=== PATIENT | female | born 2000 | race Caucasian/White ===

== ENCOUNTER 2024-04-16 08:50 | Observation (INO) ==
--- NOTE | 2024-04-16 09:08 | Emergency Department Note ---
Impression & Plan Acute appendicitis, Influenza A, SARS-CoV-2 positive ED Provider Note CHIEF COMPLAINT: Flulike symptoms HISTORY OF PRESENTING ILLNESS: The patient is a 23-year-old female with a PMH of IBS who presents to the emergency room due to fever, cough, loss of taste and smell, nasal congestion. She stated that the symptoms began on 04/03/2024 confirms that symptoms had improved but they are now worsened and include abdominal pain. She states that the abdominal pain was in the left lower quadrant and is now in the upper left quadrant. Confirms the abdominal pain started 04/11/2024. There is no history of abdominal surgeries. REVIEW OF SYSTEMS: See HPI for pertinent positives and pertinent negatives. ALLERGIES: Benzyl peroxide, seasonal allergies MEDICATIONS: Does not currently take medications. PAST MEDICAL HISTORY: IBS PHYSICAL EXAM: VITALS: Vitals are noted on the nurse's note and reviewed by myself. Vital signs stable. GENERAL: 23-year-old female, in no acute distress, nondiaphoretic, well- developed well-nourished. SKIN: Capillary reflex less than 2 seconds. HEENT: Normocephalic. PERRLA. EOMI. Nasal congestion. Mucous membranes moist. Neck is supple without nuchal rigidity. HEART: Regular rate and rhythm without murmurs gallops or rubs. LUNGS: Clear to auscultation bilaterally without wheezes, rales or rhonchi. No retractions or accessory muscle use. ABDOMEN: Positive bowel sounds x 4. Tenderness to palpation right lower quadrant. McBurney positive. Mild tenderness to palpation left upper and lower quadrant. Soft, without masses or organomegaly. Can sign negative. No guarding or rebound tenderness. MUSCULOSKELETAL: No gross musculoskeletal defects. No pedal edema. No calf tenderness. NEURO: Patient was alert and oriented. No focal neurological deficits. DIFFERENTIAL DIAGNOSIS: Viral infection, influenza, COVID-19, bacterial infection, allergic rhinitis, sinusitis, pneumonia, pneumothorax, bronchitis, GERD, cardiac cause, among others. appendicitis, diverticulitis, bowel obstruction, inflammatory bowel disease, renal colic, PUD, biliary pathology, pancreatitis, mesenteric ischemia, aortic pathology, infection, genitourinary, UTI, perforated viscus, among others. ED COURSE AND MEDICAL DECISION MAKING: HISTORY FROM INDEPENDENT HISTORIAN: The patient herself. MEDICATIONS GIVEN: Tylenol 1000 mg IV, Zofran 4 mg IV, morphine 6 mg IV, Zofran 4 mg IV INTERPRETATION OF LABS: I interpreted the labs with full lab results as below in the lab section of this note. Pertinent lab results discussed in the MDM section below. INTERPRETATION OF IMAGING: Imaging studies were interpreted by myself and read by radiology as per the imaging section of this note. CT abdomen pelvis with oral and IV contrast -air and fluid-filled appendix is borderline dilated with mild wall thickening and trace adjacent inflammatory stranding which may represent early acute appendicitis in the appropriate clinical setting. No bowel obstruction. Moderate fecal retention of rectosigmoid. Chest x-ray - no acute cardiopulmonary findings. ESCALATION OF CARE CONSIDERED: Escalation of care was considered due to the patient's abdominal pain presentation and positive findings of acute appendicitis on CT abdomen and pelvis. Patient does not have a white count but has had an middle abdominal pain as well as McBurney's positive. She has also had fevers -which may be due to influenza A/COVID positive. Consult was placed with general surgery for admission and surgical appendectomy. CONSULTATIONS: General surgery - Kristin Valdivia PA-C - A consultation was placed with general surgery physician nursing assistant provider Kristin. I discussed the patient's presenting symptoms as well as significant physical exam for appendicitis. Did confirm with her that patient is influenza A and COVID positive. She stated that she was going to check with Dr. Claros as well as the anesthesiology team to make sure that they would still be able to operate at this time and would come down to see her. MDM SUMMARY: The patient is a 23-year-old female presents to the emergency department due to upper respiratory symptoms that began on 04/03/24 which were getting better but she is still having fevers. She now confirms abdominal pain that began on 04/11/2024. The pain began in the left lower quadrant and is now in the upper left quadrant. On physical exam deep palpation to the right lower quadrant causes the patient to jump in the bed and wince. Patient confirms no history of abdominal surgeries and still having her appendix. Due to the patient's abdominal pain on physical exam and her size her and I discussed using oral contrast as well for imaging and she agreed. A full workup of the patient was started including blood work -CBC, CMP, lipase, , chest x-ray, upper respiratory panel, urinalysis, CT abdomen and pelvis with oral and IV contrast. All blood work was thoroughly reviewed with the patient. White blood cell count normal 4.79. Remainder of CBC unremarkable. CMP showing normal electrolytes, kidney function, liver function, all other levels within normal limits. Lipase normal 28. negative. Urinalysis was clean showing no obvious signs of infection. Upper respiratory panel resulted showing positive for influenza A and SARS-CoV-2. Due to the patient having upper respiratory symptoms that have been ongoing for 2 weeks now the viral treatment is now supportive. Patient is stable on exam, clear to auscultation bilaterally, afebrile, and headache is controlled with Tylenol. Chest x-ray shows no obvious sign of pneumothorax, pleural effusion, or consolidation. No acute cardiopulmonary findings. CT abdomen and pelvis with oral and IV contrast confirmed air and fluid-filled appendix is borderline dilated with mild wall thickening and trace adjacent inflammatory stranding. Due to this reading and the patient's physical presentation on exam it is apparent that she may representing early acute appendicitis. A consultation with general surgery was placed. I discussed the patient with Kristin Valdivia PA-C from general surgery which can be seen in detail above. She stated that she was going to come down and see the patient herself as well. The patient was evaluated by Kristin from general surgery and confirmed with the patient that they are going to take her down to the operating room this evening. After her examining the patient nurses notified me that she was having abdominal discomfort and pain due to physical exam. IV morphine and Zofran were given. I checked in with the patient one more time before she was admitted with the general surgery team. She had no further questions at this time and agreed to the surgical procedure. She was very pleasant and happy that it was caught before there was any further complications. Patient was hemodynamically stable and vitals were stable upon admission. DIAGNOSIS: Acute appendicitis, influenza A positive, SARS-CoV-2 positive The chart was completed utilizing [employer] Speech voice recognition software. Grammatical errors, random word insertions, pronoun errors, and incomplete sentences are an occasional consequence of this system due to software limitations, ambient noise, and hardware issues. Any formal questions or concerns about the content, text, or information contained within the body of this dictation should be directly addressed to the provider for clarification. TREATMENT PLAN/DISCHARGE INSTRUCTIONS: Treatment plans and discharge instructions will be up to the discretion of the general surgery team who completed Ailyn's appendectomy and her hospitalist care. Past Med/Surg History Problem List (Updated 04/16/24 @ 18:42 by Ilda Godfrey PA-C) SARS-CoV-2 positive (Acute) Influenza A (Acute) Acute appendicitis (Acute) Encounter for pre-operative examination Acute appendicitis Dysmenorrhea PMS (premenstrual syndrome) Encounter for annual routine gynecological examination Screen for STD (sexually transmitted disease) Constipation Weight gain IBS (irritable bowel syndrome) Medical History Influenza A COVID-19 Anxiety Nausea & vomiting Diarrhea Surgical History [place] teeth extracted Family History Father Colitis Mother Depression Grandmother No problems noted. Grandfather Lung cancer Grandmother (Paternal) Ovarian cancer Lung cancer Grandfather (Maternal) Prostate cancer Social History Smoking Status: Never smoker Do You Dip or Chew Tobacco: No; Hx Alcohol Use: Yes Alcohol Intake Frequency: 4 or More x per/Week Hx Substance Use: No Preferred Language: Georgian marital status: Single Feels Safe at Home: Yes Dental Care, Regularly: Yes Assistive Devices: None Allergies Allergies Allergy/AdvReac Type Severity Reaction Status Date / Time benzoyl peroxide Allergy Unknown Verified 04/24/23 11:36 Seasonal allergies Allergy Mild Uncoded 04/24/23 11:36 Home Meds Home Medications Medication Instructions Recorded Confirmed levocetirizine 5 mg tablet (Xyzal) 5 mg PO DAILY 09/20/22 04/16/24 ascorbic acid (vitamin C) 500 mg 500 mg PO DAILY 04/24/23 04/16/24 tablet benzonatate 100 mg capsule 100 mg PO TID PRN Cough 04/16/24 04/16/24 Results & Data (ED) Vital Signs Vital Signs - 24 hr 04/16/24 08:57 04/16/24 09:19 04/16/24 09:30 Temperature 37.3 C Temperature Source Temporal Artery Scan Pulse Rate 124 H 107 H Pulse Rate [Apical] 113 H Pulse Rate from SpO2 Sensor Pulse Rhythm [Apical] Pulse Strength [Apical] Respiratory Rate 20 18 Respiratory Effort / Characteristics Non-Labored Spontaneous Non-Labored Spontaneous Respiratory Depth Normal Normal Respiratory Pattern Regular Blood Pressure 110/80 Blood Pressure [Left Arm] Blood Pressure [Right Arm] 137/82 Blood Pressure Mean 90 Blood Pressure Mean [Left Arm] Blood Pressure Mean [Right Arm] 100 Blood Pressure Position [Left Arm] Blood Pressure Position [Right Arm] Pulse Oximetry 97 95 Oxygen Delivery Method Room Air Room Air Oxygen Flow Rate Sepsis Recent Fever Within 48 Hours No Sepsis New/Unexplained Change in Mental Status N/A Sepsis Action Taken by Nursing No Action Required 04/16/24 09:30 04/16/24 11:30 04/16/24 12:00 Temperature Temperature Source Pulse Rate 104 H 99 H Pulse Rate [Apical] Pulse Rate from SpO2 Sensor 103 H 99 H Pulse Rhythm [Apical] Pulse Strength [Apical] Respiratory Rate 20 14 Respiratory Effort / Characteristics Respiratory Depth Respiratory Pattern Blood Pressure 103/73 Blood Pressure [Left Arm] Blood Pressure [Right Arm] Blood Pressure Mean 83 Blood Pressure Mean [Left Arm] Blood Pressure Mean [Right Arm] Blood Pressure Position [Left Arm] Blood Pressure Position [Right Arm] Pulse Oximetry 95 100 99 Oxygen Delivery Method Room Air Oxygen Flow Rate Sepsis Recent Fever Within 48 Hours Sepsis New/Unexplained Change in Mental Status Sepsis Action Taken by Nursing 04/16/24 13:36 04/16/24 14:10 04/16/24 14:58 Temperature Temperature Source Pulse Rate 113 H 110 H 115 H Pulse Rate [Apical] Pulse Rate from SpO2 Sensor 111 H Pulse Rhythm [Apical] Pulse Strength [Apical] Respiratory Rate 15 16 Respiratory Effort / Characteristics Respiratory Depth Respiratory Pattern Blood Pressure 116/65 127/100 Blood Pressure [Left Arm] Blood Pressure [Right Arm] Blood Pressure Mean 82 109 Blood Pressure Mean [Left Arm] Blood Pressure Mean [Right Arm] Blood Pressure Position [Left Arm] Blood Pressure Position [Right Arm] Pulse Oximetry 98 97 Oxygen Delivery Method Room Air Oxygen Flow Rate Sepsis Recent Fever Within 48 Hours Sepsis New/Unexplained Change in Mental Status Sepsis Action Taken by Nursing 04/16/24 15:08 04/16/24 15:32 04/16/24 17:04 Temperature 37.1 C 36.8 C Temperature Source Oral Oral Pulse Rate 115 H Pulse Rate [Apical] 106 H 97 H Pulse Rate from SpO2 Sensor Pulse Rhythm [Apical] Regular Regular Pulse Strength [Apical] Normal Respiratory Rate 16 18 12 Respiratory Effort / Characteristics Non-Labored Spontaneous Non-Labored Spontaneous Respiratory Depth Normal Normal Respiratory Pattern Regular Regular Blood Pressure 127/100 Blood Pressure [Left Arm] 106/67 Blood Pressure [Right Arm] 110/84 Blood Pressure Mean Blood Pressure Mean [Left Arm] 80 Blood Pressure Mean [Right Arm] 92 Blood Pressure Position [Left Arm] Semi-fowlers Blood Pressure Position [Right Arm] Sitting Pulse Oximetry 97 100 100 Oxygen Delivery Method Room Air Room Air Oxymask Oxygen Flow Rate 9 Sepsis Recent Fever Within 48 Hours Sepsis New/Unexplained Change in Mental Status Sepsis Action Taken by Nursing 04/16/24 17:10 04/16/24 17:20 04/16/24 17:30 Temperature Temperature Source Pulse Rate Pulse Rate [Apical] 90 88 85 Pulse Rate from SpO2 Sensor Pulse Rhythm [Apical] Regular Regular Regular Pulse Strength [Apical] Respiratory Rate 14 14 13 Respiratory Effort / Characteristics Non-Labored Spontaneous Non-Labored Spontaneous Non-Labored Spontaneous Respiratory Depth Normal Normal Normal Respiratory Pattern Regular Regular Regular Blood Pressure Blood Pressure [Left Arm] 125/79 121/79 113/81 Blood Pressure [Right Arm] Blood Pressure Mean Blood Pressure Mean [Left Arm] 94 93 91 Blood Pressure Mean [Right Arm] Blood Pressure Position [Left Arm] Semi-fowlers Semi-fowlers Semi-fowlers Blood Pressure Position [Right Arm] Pulse Oximetry 100 100 96 Oxygen Delivery Method Oxymask Room Air Room Air Oxygen Flow Rate 9 Sepsis Recent Fever Within 48 Hours Sepsis New/Unexplained Change in Mental Status Sepsis Action Taken by Nursing 04/16/24 17:40 04/16/24 17:50 Temperature 37 C Temperature Source Oral Pulse Rate Pulse Rate [Apical] 79 76 Pulse Rate from SpO2 Sensor Pulse Rhythm [Apical] Regular Regular Pulse Strength [Apical] Respiratory Rate 21 18 Respiratory Effort / Characteristics Non-Labored Spontaneous Non-Labored Spontaneous Respiratory Depth Normal Normal Respiratory Pattern Regular Regular Blood Pressure Blood Pressure [Left Arm] 117/77 114/77 Blood Pressure [Right Arm] Blood Pressure Mean Blood Pressure Mean [Left Arm] 90 89 Blood Pressure Mean [Right Arm] Blood Pressure Position [Left Arm] Semi-fowlers Semi-fowlers Blood Pressure Position [Right Arm] Pulse Oximetry 95 96 Oxygen Delivery Method Room Air Room Air Oxygen Flow Rate Sepsis Recent Fever Within 48 Hours Sepsis New/Unexplained Change in Mental Status Sepsis Action Taken by Nursing Laboratory Data 04/16/24 09:32 04/16/24 09:32 Lab Results 04/16/24 Range/Units 09:32 WBC 4.79 L (4.8-10.8) K/ul RBC 4.79 (4.20-5.40) M/uL Hgb 13.9 (12.0-16.0) g/dl Hct 40.3 (37.0-47.0) % MCV 84.1 (80.0-100.0) fL MCH 29.0 (25.0-34.0) pg MCHC 34.5 (32.0-36.0) g/dL RDW Std Deviation 36.0 L (36.4-46.3) fL RDW Coeff of Kishore 11.8 (11.5-14.5) % Plt Count 225 (130-400) K/uL MPV 10.0 (9.4-12.4) fL Immature Gran % (Auto) 0.2 % Neut % (Auto) 72.1 % Lymph % (Auto) 15.9 % [place] % (Auto) 10.6 % Eos % (Auto) 1.0 % Baso % (Auto) 0.2 % Neut # (Auto) 3.45 (1.40-6.50) K/uL Lymph # (Auto) 0.76 L (1.20-3.40) K/uL [place] # (Auto) 0.51 (0.11-0.59) K/uL Eos # (Auto) 0.05 (0.00-0.50) K/uL Baso # (Auto) 0.01 (0.00-0.20) K/uL Immature Gran # (Auto) 0.01 (0.01-0.20) K/uL Sodium 137 (136-145) mmol/L Potassium 3.8 (3.5-5.1) mmol/L Chloride 103 (98-107) mmol/L Carbon Dioxide 29 (21-32) mmol/L Anion Gap 5 (3-11) BUN 6 (6-23) mg/dl Creatinine 0.69 (0.6-1.2) mg/dl Est Cr Clr Drug Dosing 118.7 ml/min eGFR 124.98 BUN/Creatinine Ratio 8.7 L (10-20) Glucose 115 H (70-99(Fasting)) mg/dl Calcium 9.0 (8.6-10.3) mg/dl Total Bilirubin 0.4 (0.2-1.0) mg/dl AST 18 (13-39) U/L ALT 17 (7-52) U/L Alkaline Phosphatase 71 (34-104) U/L Total Protein 7.8 (6.0-8.3) gm/dl Albumin 4.6 (3.4-5.0) gm/dl Globulin 3.2 (2.5-4.0) gm/dl Albumin/Globulin Ratio 1.4 (0.9-2) Lipase 28 (11-82) U/L HCG, Qual Negative (Negative) Urine Color Yellow Urine Appearance Clear (Clear) Urine pH 7.0 (4.5-7.5) Ur Specific [place] 1.005 (1.000-1.030) Urine Protein Negative (Negative) Urine Glucose (UA) Negative (Negative) Urine Ketones Negative (Negative) Urine Blood Negative (Negative) Urine Nitrite Negative (Negative) Urine Bilirubin Negative (Negative) Urine Urobilinogen Negative (Negative) Ur Leukocyte Esterase Negative (Negative) Nasal Influ A H1 2008 PCR DETECTED A (NotDetected) Adenovirus (PCR) Not Detected (NotDetected) B. pertussis DNA (PCR) Not Detected (NotDetected) B.parapertussis DNA PCR Not Detected (NotDetected) C. pneumoniae DNA (PCR) Not Detected (NotDetected) Coronavirus OC43 (PCR) Not Detected (NotDetected) Coronavirus HKU1 (PCR) Not Detected (NotDetected) Coronavirus 229E (PCR) Not Detected (NotDetected) SARS-CoV-2 (PCR) DETECTED A (NotDetected) Coronavirus NL63 (PCR) Not Detected (NotDetected) Human Metapneumovir PCR Not Detected (NotDetected) Influenza Type B (PCR) Not Detected (NotDetected) M. pneumoniae (PCR) Not Detected (NotDetected) Parainfluenza 1 (PCR) Not Detected (NotDetected) Parainfluenza 2 (PCR) Not Detected (NotDetected) Parainfluenza 3 (PCR) Not Detected (NotDetected) Parainfluenza 4 (PCR) Not Detected (NotDetected) RSV (PCR) Not Detected (NotDetected) Entero/Rhino (PCR) Not Detected (NotDetected) Administered Medications Ondansetron HCl (Ondansetron Inj 2 Mg/Ml 2 Ml Vial) 4 mg IV ONCE PRN PRN Reason: PACU Use Only-Nausea/Vomiting Stop: 04/16/24 23:33 Last Admin: 04/16/24 17:15 Dose: 4 mg Documented By: MADHAVI Discontinued Medications Bupivacaine HCl/Epinephrine Bitart (Bupivacaine/Epinephrine 0.5% Mpf 1:200,000 30 Ml Vial) Confirm Administered Dose 30 ml .ROUTE .STK-MED ONE Stop: 04/16/24 15:12 Last Admin: 04/16/24 16:44 Dose: 30 ml Documented By: KATIE Fentanyl Citrate (Fentanyl Citrate Pf 100 Mcg/2 Ml Vial) 50 mcg IV Q5M PRN PRN Reason: PACU Use Only-Pain Stop: 04/16/24 23:33 Last Admin: 04/16/24 17:35 Dose: 50 mcg Documented By: Admin: 04/16/24 17:25 Dose: 50 mcg Documented By: Admin: 04/16/24 17:15 Dose: 50 mcg Documented By: Admin: 04/16/24 17:10 Dose: 50 mcg Documented By: MADHAVI Acetaminophen (Ofirmev) 1,000 mg in 100 mls @ 400 mls/hr IV NOW STA Stop: 04/16/24 09:32 Last Infusion: 04/16/24 09:55 Dose: Infused Documented By: Admin: 04/16/24 09:40 Dose: 400 mls/hr Documented By: EMMA Cefazolin Sodium (Ancef 2000mg) 2,000 mg in 15 mls @ 3.75 mls/min IV PREOP ONE; Protocol Stop: 04/16/24 14:40 Last Admin: 04/16/24 14:50 Dose: 3.75 mls/min Documented By: JUANCARLOS Cefazolin Sodium (Ancef 2000mg) 2,000 mg in 15 mls @ 3.75 mls/min IV ONCE ONE Stop: 04/16/24 16:40 Last Admin: 04/16/24 16:12 Dose: 3.75 mls/min Documented By: [id number] Ioversol (Optiray 320 100ml) 92 ml IV ONCE ONE Stop: 04/16/24 11:25 Last Admin: 04/16/24 11:24 Dose: 92 ml Documented By: SOLIS Morphine Sulfate (Morphine Sulfate 10 Mg/Ml Carp/Vial) 6 mg IV NOW STA Stop: 04/16/24 14:30 Last Admin: 04/16/24 15:05 Dose: Not Given Documented By: JUANCARLOS Ondansetron HCl (Ondansetron Inj 2 Mg/Ml 2 Ml Vial) 4 mg IV NOW STA Stop: 04/16/24 09:23 Last Admin: 04/16/24 14:40 Dose: Not Given Documented By: JUANCARLOS Ondansetron HCl (Ondansetron Inj 2 Mg/Ml 2 Ml Vial) 4 mg IV NOW STA Stop: 04/16/24 14:30 Last Admin: 04/16/24 15:03 Dose: 4 mg Documented By: JUANCARLOS Imaging Data Radiologist's Impression: Abdomen/Pelvis CT 04/16/24 09:[address] WITH IV AND ORAL CONTRAST CT DOSE: 584.89 mGy.cm HISTORY: Acute generalized abdominal pain abdominal pain TECHNIQUE: Multiaxial CT images of the abdomen and pelvis were performed following the IV administration of 92 cc of Optiray and oral contrast. A dose lowering technique was utilized adhering to the principles of ALARA. COMPARISON STUDY: None. FINDINGS: The lung bases are clear. The liver, spleen, gallbladder, pancreas, kidneys, and adrenal glands are within normal limits. Mild bilateral pelvocaliectasis is likely physiologic. The appendix is air and fluid filled measuring up to 6 mm transversely with mild wall thickening. Mild adjacent periappendiceal stranding. Contrast is noted within the proximal appendiceal lumen. There is moderate fecal retention. There is mild wall thickening with partial distention of the mid transverse colon. No bowel wall thickening or obstruction. Unremarkable uterus. Numerous bilateral ovarian follicles. Trace likely physiologic free pelvic fluid. No suspicious lytic or blastic osseous lesions. IMPRESSION: 1. The air and fluid-filled appendix is borderline dilated with mild wall thickening and trace adjacent inflammatory stranding which may represent early acute appendicitis in the appropriate clinical setting. Correlate with patient history and physical exam findings. 2. No bowel obstruction or pneumoperitoneum. 3. Moderate fecal retention of the rectosigmoid. ACT 112: Negative or not required by law. The above report was generated using voice recognition software. It may contain grammatical, syntax or spelling errors. Electronically signed by: Corwin Sarmiento M.D. 04/16/2024 12:16 PM Chest X-Ray 04/16/24 09:31 XR chest 2V PA/lateral CLINICAL HISTORY: URI symptoms COMPARISON STUDY: No previous studies for comparison. FINDINGS: Lung volumes are mildly diminished. Lungs are clear. There is no pneumothorax or pleural effusion. Cardiac size is normal. Mediastinal contours are normal. There is no evidence for pulmonary edema. IMPRESSION: No acute cardiopulmonary findings. ACT 112: Negative or not required by law. Electronically signed by: Asif Camacho M.D. 04/16/2024 11:22 AM Discharge Plan Visit Data Chief Complaint: Flu Like Symptoms Stated Complaint: HEADACHE, NAUSEA, FEVER, ACHES, SORE THROAT, ABD P ED Provider: Hipolito Carroll ED Midlevel Provider: Ilda Godfrey Discharge Problem: Acute appendicitis, Influenza A, SARS-CoV-2 positive Patient Disposition: Admitted As Inpatient Condition: Good Discharge Instructions Interventions: ED Discharge Assessment Last Done: 04/16/24 15:08 Discharge Problem: Acute appendicitis Qualifiers: Acute appendicitis type: with generalized peritonitis Appendicitis gangrene presence: with gangrene Appendicitis perforation presence: without perforation A ppendicitis abscess presence: without abscess Qualified Code(s): K35.200 - Acute appendicitis with generalized peritonitis, without perforation or abscess; K35.891 - Other acute appendicitis without perforation, with gangrene
[2024-04-16] MEDS: ACETAMINOPHEN 1,000 MG/100 ML VIAL IV STA (09:40)
[2024-04-16 09:55] LABS: Basophils # (auto) 0.01 K/uL (0.00-0.20); Basophils % (auto) 0.2 %; Eosinophils # (auto) 0.05 K/uL (0.00-0.50); Hematocrit (blood only) 40.3 % (37.0-47.0); Hemoglobin 13.9 g/dl (12.0-16.0); Immature Granulocytes # (auto) 0.01 K/uL (0.01-0.20); Immature Granulocytes % (auto) 0.2 %; Lymphocytes # (auto) 0.76 K/uL (1.20-3.40); Lymphocytes % (auto) 15.9 %; Mean Corpuscular Hgb Conc 34.5 g/dL (32.0-36.0); Mean Corpuscular Volume 84.1 fL (80.0-100.0); Monocytes # (auto) 0.51 K/uL (0.11-0.59); Monocytes % (auto) 10.6 %; Neutrophils # (auto) 3.45 K/uL (1.40-6.50); Neutrophils % (auto) 72.1 %; Platelet Count 225 K/uL (130-400); RDW Coefficient of Variation 11.8 % (11.5-14.5); Red Blood Count 4.79 M/uL (4.20-5.40); White Blood Count 4.79 K/ul (4.8-10.8)
[2024-04-16 10:06] LABS: Appearance Urine Clear (Clear); Bilirubin Urine Negative (Negative); Blood Urine Negative (Negative); Color Urine Yellow; Glucose Urine UA Negative (Negative); Ketones Urine Negative (Negative); Leukocyte Esterase Urine Negative (Negative); Nitrite Urine Negative (Negative); Protein Urine Negative (Negative); Specific Gravity Urine 1.005 (1.000-1.030); Urobilinogen Urine Negative (Negative)
[2024-04-16 10:08] LABS: Pregnancy Test, Serum Negative (Negative)
[2024-04-16 10:16] LABS: Albumin Globulin Ratio 1.4 (0.9-2); Albumin Level 4.6 gm/dl (3.4-5.0); BUN Creatinine Ratio 8.7 (10-20); Bilirubin,Total 0.4 mg/dl (0.2-1.0); Creatinine Clr Calc Pharmacy 118.7 ml/min; Globulin 3.2 gm/dl (2.5-4.0); Potassium 3.8 mmol/L (3.5-5.1); Total Protein 7.8 gm/dl (6.0-8.3)
[2024-04-16 11:08] LABS: Adenovirus PCR Not Detected (NotDetected); Bordetella parapertussis PCR Not Detected (NotDetected); Bordetella pertussis PCR Not Detected (NotDetected); Chlamydia pneumoniae PCR Not Detected (NotDetected); Coronavirus 229E PCR Not Detected (NotDetected); Coronavirus CoV-2 (COVID19)PCR DETECTED (NotDetected); Coronavirus HKU1 PCR Not Detected (NotDetected); Coronavirus NL63 PCR Not Detected (NotDetected); Coronavirus OC43PCR Not Detected (NotDetected); Human Metapneumovirus PCR Not Detected (NotDetected); Influenza A (H1 2009) PCR DETECTED (NotDetected); Influenza B PCR Not Detected (NotDetected); Mycoplasma pneumoniae PCR Not Detected (NotDetected); Parainfluenza Virus 1 PCR Not Detected (NotDetected); Parainfluenza Virus 2 PCR Not Detected (NotDetected); Parainfluenza Virus 3 PCR Not Detected (NotDetected); Parainfluenza Virus 4 PCR Not Detected (NotDetected); Respiratory Syncytial VirusPCR Not Detected (NotDetected); Rhinovirus/Enterovirus PCR Not Detected (NotDetected)
--- NOTE | 2024-04-16 11:23 | XRay Report ---
XR chest 2V PA/lateral CLINICAL HISTORY: URI symptoms COMPARISON STUDY: No previous studies for comparison. FINDINGS: Lung volumes are mildly diminished. Lungs are clear. There is no pneumothorax or pleural ef fusion. Cardiac size is normal. Mediastinal contours are normal. There is no evidence for pulmonary e arcelia. IMPRESSION: No acute cardiopulmonary findings. ACT 112: Negative or not required by law. Electronically signed by: Asif Camacho M.D. 04/16/2024 11:22 AM
[2024-04-16] MEDS: OPTIRAY 320 100ml IV ONE (11:24)
--- NOTE | 2024-04-16 12:17 | CT Scan Report ---
ABDOMEN AND PELVIS CT WITH IV AND ORAL CONTRAST CT DOSE: 584.89 mGy.cm HISTORY: Acute generalized abdominal pain abdominal pain TECHNIQUE: Multiaxial CT images of the abdomen and pelvis were performed following the IV administrat ion of 92 cc of Optiray and oral contrast. A dose lowering technique was utilized adhering to the pr inciples of ODELL. COMPARISON STUDY: None. FINDINGS: The lung bases are clear. The liver, spleen, gallbladder, pancreas, kidneys, and adrenal gl ands are within normal limits. Mild bilateral pelvocaliectasis is likely physiologic. The appendix is air and fluid filled measuring up to 6 mm transversely with mild wall thickening. Mild adjacent west appendiceal stranding. Contrast is noted within the proximal appendiceal lumen. There is moderate fec al retention. There is mild wall thickening with partial distention of the mid transverse colon. No b owel wall thickening or obstruction. Unremarkable uterus. Numerous bilateral ovarian follicles. Trace likely physiologic free pelvic fluid. No suspicious lytic or blastic osseous lesions. IMPRESSION: 1. The air and fluid-filled appendix is borderline dilated with mild wall thickening and trace adjace nt inflammatory stranding which may represent early acute appendicitis in the appropriate clinical se tting. Correlate with patient history and physical exam findings. 2. No bowel obstruction or pneumoperitoneum. 3. Moderate fecal retention of the rectosigmoid. ACT 112: Negative or not required by law. The above report was generated using voice recognition software. It may contain grammatical, syntax o r spelling errors. Electronically signed by: Corwin Sarmiento M.D. 04/16/2024 12:16 PM
--- NOTE | 2024-04-16 14:37 | History & Physical Report ---
Date of Service April 16, 2024 Assessment & Plan (1) Acute appendicitis: (2) COVID-19: (3) Influenza A: Plan: 23 yo female with 2 weeks of URI symptoms with onset of increasing symptoms and left sided abdominal pain on Monday. CT scan with early acute appendicitis. COVID and Influenza A +. CXR normal. No leukocytosis. Examination with tenderness in LLQ and RLQ with positive Mcburneys points. Discussed with patient and her mother (Via telephone) examination , lab and ct findings. Discussed laparoscopic appendectomy, risks, expected recovery and restrictions. will proceed with laparoscopic appendectomy today at earliest convenience. Dr. Claros has seen and examind patient and informed consent obtained, see addendum for further recommendations/plan. History of Present Illness Chief Complaint: Fever, nasal congestion, cough, abdominal pain Primary Care Provider: NO PCP Ailyn is a 23 yo female with history of IBS, constipation, dysmenorrhea who presented to ED with complaint of increasing illness . States she started having upper respiratory symptoms on the with fever, nasal congestion and cough with loss of taste and smell but symptoms seem to improve last Monday- Monday. She then started having fevers, nasal congestion and abdominal pain mostly in the left lower and upper abdomen starting on Monday. She states pain is dull aching but sharp in nature at times. Had constipation but then diarrhea after laxative. No blood in stools, no difficulty urinating or blood in urine. No blood thinning agents. Currently rating pain 4/10. Pain radiation from left side to right side. Allergies Allergy/AdvReac Type Severity Reaction Status Date / Time benzoyl peroxide Allergy Unknown Verified 04/24/23 11:36 Seasonal allergies Allergy Mild Uncoded 04/24/23 11:36 Home Medications Medication Instructions Recorded Confirmed Type levocetirizine 5 mg tablet (Xyzal) 5 mg PO DAILY 09/20/22 04/16/24 History ascorbic acid (vitamin C) 500 mg 500 mg PO DAILY 04/24/23 04/16/24 History tablet benzonatate 100 mg capsule 100 mg PO TID PRN Cough 04/16/24 04/16/24 History Past Med/Surg History Problem List (Updated 04/16/24 @ 14:35 by Aparna Valdivia PA-C) Influenza A COVID-19 Acute appendicitis Dysmenorrhea PMS (premenstrual syndrome) Encounter for annual routine gynecological examination Screen for STD (sexually transmitted disease) Constipation Weight gain IBS (irritable bowel syndrome) Medical History Constipation IBS (irritable bowel syndrome) Anxiety Nausea & vomiting Diarrhea Surgical History [place] teeth extracted Family History Father Colitis Mother Depression Grandmother No problems noted. Grandfather Lung cancer Grandmother (Paternal) Ovarian cancer Lung cancer Grandfather (Maternal) Prostate cancer Social History Smoking Status: Never smoker Do You Dip or Chew Tobacco: No; Hx Alcohol Use: Yes Alcohol Intake Frequency: 4 or More x per/Week Hx Substance Use: No Preferred Language: Australian marital status: Single Feels Safe at Home: Yes Dental Care, Regularly: Yes Assistive Devices: None Review of Systems Review of Systems: All systems reviewed & are unremarkable except as noted in HPI & below Physical Exam Constitutional: WD/WN, vitals as above cooperative and comfortable; no acute distress and not ill appearing Respiratory: normal respiratory effort, lungs clear to auscultation Cardiovascular: Rate/Rhythm: regular rate, regular rhythm and + tachycardic Heart Sounds: normal S1 and normal S2; no gallop, no murmur and no cardiac rub Gastrointestinal (Abdomen): Inspection/Auscultation: abdomen normal to inspection; abdomen not distended Percussion/Palpation: + abdomen tender (RLQ positive Mcburneys point) and abdomen soft; abdomen not firm Skin: no rashes, warm and dry Psychiatric: Orientation: alert and oriented x 3 Results & Data Results & Data Vital Signs (Past 12 Hours) Vital Signs Temp Pulse Pulse Resp BP BP Pulse Ox 04/16/24 14:10 110 H 04/16/24 13:36 113 H 15 116/65 98 04/16/24 12:00 99 H 14 99 04/16/24 11:30 104 H 20 103/73 100 04/16/24 09:30 95 04/16/24 09:30 113 H 18 137/82 95 04/16/24 09:19 107 H 04/16/24 08:57 37.3 C 124 H 20 110/80 97 O2 Del Method 04/16/24 14:10 04/16/24 13:36 04/16/24 12:00 04/16/24 11:30 04/16/24 09:30 Room Air 04/16/24 09:30 Room Air 04/16/24 09:19 04/16/24 08:57 Room Air Laboratory Results 04/16/24 Range/Units 09:32 WBC 4.79 L (4.8-10.8) K/ul RBC 4.79 (4.20-5.40) M/uL Hgb 13.9 (12.0-16.0) g/dl Hct 40.3 (37.0-47.0) % MCV 84.1 (80.0-100.0) fL MCH 29.0 (25.0-34.0) pg MCHC 34.5 (32.0-36.0) g/dL RDW Std Deviation 36.0 L (36.4-46.3) fL RDW Coeff of Kishore 11.8 (11.5-14.5) % Plt Count 225 (130-400) K/uL MPV 10.0 (9.4-12.4) fL Immature Gran % (Auto) 0.2 % Neut % (Auto) 72.1 % Lymph % (Auto) 15.9 % [place]pson % (Auto) 10.6 % Eos % (Auto) 1.0 % Baso % (Auto) 0.2 % Neut # (Auto) 3.45 (1.40-6.50) K/uL Lymph # (Auto) 0.76 L (1.20-3.40) K/uL [place]pson # (Auto) 0.51 (0.11-0.59) K/uL Eos # (Auto) 0.05 (0.00-0.50) K/uL Baso # (Auto) 0.01 (0.00-0.20) K/uL Immature Gran # (Auto) 0.01 (0.01-0.20) K/uL Sodium 137 (136-145) mmol/L Potassium 3.8 (3.5-5.1) mmol/L Chloride 103 (98-107) mmol/L Carbon Dioxide 29 (21-32) mmol/L Anion Gap 5 (3-11) BUN 6 (6-23) mg/dl Creatinine 0.69 (0.6-1.2) mg/dl Est Cr Clr Drug Dosing 118.7 ml/min eGFR 124.98 BUN/Creatinine Ratio 8.7 L (10-20) Glucose 115 H (70-99(Fasting)) mg/dl Calcium 9.0 (8.6-10.3) mg/dl Total Bilirubin 0.4 (0.2-1.0) mg/dl AST 18 (13-39) U/L ALT 17 (7-52) U/L Alkaline Phosphatase 71 (34-104) U/L Total Protein 7.8 (6.0-8.3) gm/dl Albumin 4.6 (3.4-5.0) gm/dl Globulin 3.2 (2.5-4.0) gm/dl Albumin/Globulin Ratio 1.4 (0.9-2) Lipase 28 (11-82) U/L HCG, Qual Negative (Negative) Urine Color Yellow Urine Appearance Clear (Clear) Urine pH 7.0 (4.5-7.5) Ur Specific [place] 1.005 (1.000-1.030) Urine Protein Negative (Negative) Urine Glucose (UA) Negative (Negative) Urine Ketones Negative (Negative) Urine Blood Negative (Negative) Urine Nitrite Negative (Negative) Urine Bilirubin Negative (Negative) Urine Urobilinogen Negative (Negative) Ur Leukocyte Esterase Negative (Negative) Nasal Influ A H1 2008 PCR DETECTED A (NotDetected) Adenovirus (PCR) Not Detected (NotDetected) B. pertussis DNA (PCR) Not Detected (NotDetected) B.parapertussis DNA PCR Not Detected (NotDetected) C. pneumoniae DNA (PCR) Not Detected (NotDetected) Coronavirus OC43 (PCR) Not Detected (NotDetected) Coronavirus HKU1 (PCR) Not Detected (NotDetected) Coronavirus 229E (PCR) Not Detected (NotDetected) SARS-CoV-2 (PCR) DETECTED A (NotDetected) Coronavirus NL63 (PCR) Not Detected (NotDetected) Human Metapneumovir PCR Not Detected (NotDetected) Influenza Type B (PCR) Not Detected (NotDetected) M. pneumoniae (PCR) Not Detected (NotDetected) Parainfluenza 1 (PCR) Not Detected (NotDetected) Parainfluenza 2 (PCR) Not Detected (NotDetected) Parainfluenza 3 (PCR) Not Detected (NotDetected) Parainfluenza 4 (PCR) Not Detected (NotDetected) RSV (PCR) Not Detected (NotDetected) Entero/Rhino (PCR) Not Detected (NotDetected) Diagnostic Findings ABDOMEN AND PELVIS CT WITH IV AND ORAL CONTRAST CT DOSE: 584.89 mGy.cm HISTORY: Acute generalized abdominal pain abdominal pain TECHNIQUE: Multiaxial CT images of the abdomen and pelvis were performed following the IV administration of 92 cc of Optiray and oral contrast. A dose lowering technique was utilized adhering to the principles of ALARA. COMPARISON STUDY: None. FINDINGS: The lung bases are clear. The liver, spleen, gallbladder, pancreas, kidneys, and adrenal glands are within normal limits. Mild bilateral pelvocaliectasis is likely physiologic. The appendix is air and fluid filled measuring up to 6 mm transversely with mild wall thickening. Mild adjacent pe riappendiceal stranding. Contrast is noted within the proximal appendiceal lumen. There is moderate fecal retention. There is mild wall thickening with partial distention of the mid transverse colon. No bowel wall thickening or obstruction. Unremarkable uterus. Numerous bilateral ovarian follicles. Trace likely physiologic free pelvic fluid. No suspicious lytic or blastic osseous lesions. IMPRESSION: 1. The air and fluid-filled appendix is borderline dilated with mild wall thickening and trace adjacent inflammatory stranding which may represent early acute appendicitis in the appropriate clinical setting. Correlate with patient history and physical exam findings. 2. No bowel obstruction or pneumoperitoneum. 3. Moderate fecal retention of the rectosigmoid. XR chest 2V PA/lateral CLINICAL HISTORY: URI symptoms COMPARISON STUDY: No previous studies for comparison. FINDINGS: Lung volumes are mildly diminished. Lungs are clear. There is no pneumothorax or pleural effusion. Cardiac size is normal. Mediastinal contours are normal. There is no evidence for pulmonary edema. IMPRESSION: No acute cardiopulmonary findings. Code Status & VTE Plan VTE Prophylaxis Plan VTE Prophylaxis will be ordered: Yes
[2024-04-16] MEDS: ONDANSETRON INJ 2 MG/ML 2 ML VIAL IV STA ×2 (14:40→15:03)
[2024-04-16] MEDS: ceFAZolin 2000MG 2,000 MG/15 ML SYR IV ONE ×2 (14:50→16:12)
--- NOTE | 2024-04-16 15:00 | Anesthesiology Consultation ---
Date of Service April 16, 2024 Assessment & Plan (1) Encounter for pre-operative examination: Chart Review Chart Review: Acceptable Risk for Surgery (urgent) History Surgery Operation Date: 04/16/24 12:40 Proposed Procedures p Laparoscopic Appendectomy - Harrison Claros MD Height/Weight Height: 5 ft 6 in Weight: 64.1 kg Allergies Allergy/AdvReac Type Severity Reaction Status Date / Time benzoyl peroxide Allergy Unknown Verified 04/24/23 11:36 Seasonal allergies Allergy Mild Uncoded 04/24/23 11:36 Medications Home Medications Medication Instructions Recorded Confirmed Last Taken levocetirizine 5 mg tablet (Xyzal) 5 mg PO DAILY 09/20/22 04/16/24 Unknown ascorbic acid (vitamin C) 500 mg 500 mg PO DAILY 04/24/23 04/16/24 Unknown tablet benzonatate 100 mg capsule 100 mg PO TID PRN Cough 04/16/24 04/16/24 Unknown Past Medical History Medical History (Updated 04/16/24 @ 15:00 by Clint Chavis MD) Influenza A COVID-19 Anxiety Nausea & vomiting Diarrhea Past Family History Family History Father Colitis Mother Depression Grandmother No problems noted. Grandfather Lung cancer Grandmother (Paternal) Ovarian cancer Lung cancer Grandfather (Maternal) Prostate cancer Past Surgical History Surgical History [place] teeth extracted Social History Smoking Status: Never smoker Do You Dip or Chew Tobacco: No Hx Alcohol Use: Yes Hx Substance Use: No Physical Exam Vital Signs Last Vital Signs Temp 37.3 C 04/16/24 08:57 Pulse 110 H 04/16/24 14:10 Resp 15 04/16/24 13:36 BP 116/65 04/16/24 13:36 Pulse Ox 98 04/16/24 13:36 O2 Del Method Room Air 04/16/24 09:30 Testing Laboratory Results 04/16/24 09:32 04/16/24 09:32 Urine Color Yellow 04/16/24 09:32 Urine Appearance Clear (Clear) 04/16/24 09:32 Urine pH 7.0 (4.5-7.5) 04/16/24 09:32 Ur Specific [place] 1.005 (1.000-1.030) 04/16/24 09:32 Urine Protein Negative (Negative) 04/16/24 09:32 Urine Glucose (UA) Negative (Negative) 04/16/24 09:32 Urine Ketones Negative (Negative) 04/16/24 09:32 Urine Nitrite Negative (Negative) 04/16/24 09:32 Ur Leukocyte Esterase Negative (Negative) 04/16/24 09:32
[2024-04-16] MEDS: MoRPHine SULFATE 10 MG/ML CARP/VIAL IV STA (15:05)
[2024-04-16] MEDS ORDERED: ePHEDrine sulfate 50 MG/ML AMP IV PRN (15:32)
[2024-04-16] MEDS ORDERED: PROMETHAZINE HCL 6.25 MG in SODIUM CHLORIDE 0.9% 50 ML IV PRN (15:32)
[2024-04-16] MEDS ORDERED: ATROPINE SULFATE 0.1 MG/ML 10ML SYR IV PRN (15:32)
--- NOTE | 2024-04-16 15:32 | Anesthesiology Consultation ---
Date of Service April 16, 2024 Assessment & Plan Chart Review Chart Review: Acceptable Risk for Surgery and Patient NOT seen in Pre Admission Testing Consults Requested none ASA [id number] Proposed Anesthesia Anesthesia Type: General Risk / Benefits Reviewed With: PT / POA / Parent / Guardian, Accepts Plan and Informed Consent Obtained History Surgery Operation Date: 04/16/24 12:40 Proposed Procedures p Laparoscopic Appendectomy - Harrison Claros MD Height/Weight Height: 5 ft 6 in Weight: 64.1 kg Allergies Allergy/AdvReac Type Severity Reaction Status Date / Time benzoyl peroxide Allergy Unknown Verified 04/24/23 11:36 Seasonal allergies Allergy Mild Uncoded 04/24/23 11:36 Medications Home Medications Medication Instructions Recorded Confirmed Last Taken levocetirizine 5 mg tablet (Xyzal) 5 mg PO DAILY 09/20/22 04/16/24 Unknown ascorbic acid (vitamin C) 500 mg 500 mg PO DAILY 04/24/23 04/16/24 Unknown tablet benzonatate 100 mg capsule 100 mg PO TID PRN Cough 04/16/24 04/16/24 Unknown Past Medical History Medical History (Updated 04/16/24 @ 15:00 by Clint Chavis MD) Influenza A COVID-19 Anxiety Nausea & vomiting Diarrhea Exercise / Class Metabolic Activity II 4-5 Yardwork/Stairs/Walk up hill Past Family History Family History Father Colitis Mother Depression Grandmother No problems noted. Grandfather Lung cancer Grandmother (Paternal) Ovarian cancer Lung cancer Grandfather (Maternal) Prostate cancer Past Surgical History Surgical History [place] teeth extracted Past Anesthesia History No Hx of Anesthesia Complications and No Family Hx of Anesthesia Complications History of PONV No Hx of PONV and No Hx of Motion Sickness Social History Smoking Status: Never smoker Do You Dip or Chew Tobacco: No Hx Alcohol Use: Yes Hx Substance Use: No Physical Exam Vital Signs Last Vital Signs Temp 37.3 C 04/16/24 08:57 Pulse 115 H 04/16/24 15:08 Resp 16 04/16/24 15:08 BP 127/100 04/16/24 15:08 Pulse Ox 97 04/16/24 15:08 O2 Del Method Room Air 04/16/24 15:08 ENMT Mouth: no dentition abnormality Thyromental Distance: > or= 3.5 Finger Breadths Mallampati Class: II Neck normal visual inspection Respiratory normal respiratory effort Auscultation: lungs clear to auscultation bilaterally Cardiovascular Rate/Rhythm: regular rhythm and + tachycardic Psychiatric Orientation: alert Testing Laboratory Results 04/16/24 09:32 04/16/24 09:32 Urine Color Yellow 04/16/24 09:32 Urine Appearance Clear (Clear) 04/16/24 09:32 Urine pH 7.0 (4.5-7.5) 04/16/24 09:32 Ur Specific [place] 1.005 (1.000-1.030) 04/16/24 09:32 Urine Protein Negative (Negative) 04/16/24 09:32 Urine Glucose (UA) Negative (Negative) 04/16/24 09:32 Urine Ketones Negative (Negative) 04/16/24 09:32 Urine Nitrite Negative (Negative) 04/16/24 09:32 Ur Leukocyte Esterase Negative (Negative) 04/16/24 09:32
[2024-04-16] MEDS ORDERED: fentaNYL citrate PF 100 MCG/2 ML VIAL ONE (15:52)
[2024-04-16] MEDS ORDERED: MIDAZOLAM HCL 1 MG/ML 2ML VIAL ONE (15:52)
[2024-04-16] MEDS ORDERED: DEXAMETHASONE SOD INJ 4 MG/ML VIAL ONE (16:02)
[2024-04-16] MEDS ORDERED: ONDANSETRON INJ 2 MG/ML 2 ML VIAL ONE (16:02)
[2024-04-16] MEDS ORDERED: ROCURONIUM BROMIDE 10 MG/ML 5 ML VIAL IV ONE (16:02)
[2024-04-16] MEDS ORDERED: LIDOCAINE 2% 2 ML VIAL/AMP(20MG/ML) INFIL ONE (16:02)
[2024-04-16] MEDS ORDERED: PROPOFOL IV EMULSION 10 MG/ML 20 ML VIAL IV ONE (16:02)
[2024-04-16] MEDS ORDERED: ceFAZolin 330 MG/ML 1 GM VIAL ONE (16:08)
[2024-04-16] MEDS ORDERED: ARTIFICIAL TEARS OP OINT 3.5 GM TUBE ONE (16:08)
[2024-04-16] MEDS ORDERED: ACETAMINOPHEN 1000 MG/100 ML IV IV ONE (16:32)
[2024-04-16] MEDS ORDERED: KETOROLAC 30 MG/ML VIAL ONE (16:44)
[2024-04-16] MEDS: BUPIVACAINE/EPINEPHRINE 0.5% MPF 1:200,000 30 ML VIAL ONE (16:44)
[2024-04-16] MEDS ORDERED: SUGAMMADEX SODIUM 200 MG/2 ML VIAL IV ONE (16:46)
--- NOTE | 2024-04-16 16:55 | Operative Report ---
Post Operative Report Pre & Post Diagnosis Operation Date: 04/16/24 12:40 Pre-Op Diagnosis: Acute appendicitis Post-Op Diagnosis: Acute appendicitis I identified the patient and participated in the time-out.: Yes Procedure Operation Date: 04/16/24 12:40 Actual Procedures p Laparoscopic Appendectomy(Not Applicable) - Harrison Claros MD Surgeon Harrison Claros MD Surgery Nurse CARLOS A Valdivia assisted with tissue retraction, camera op, closure Estimated Blood Loss 5 Findings Consistent with Post-Op Diagnosis Specimens appendix Drains none Anesthesia Type General Complications none Description of Procedure the patient was taken to the operating room, and placed supine on the operating table. A timeout was performed, perioperative antibiotics were administered, SCD boots were placed. After adequate anesthesia and analgesia was obtained, the abdomen was prepped and draped in the normal sterile fashion. A 1 cm incision was made in the supraumbilical region and carried down to the level of the fascia. A trach hook was used to grasp the fascia and elevated and a varies needle was used to enter the abdominal cavity. The abdomen was insufflated to a pressure of 15 mmHg, and a 5 mm trocar was placed in this location. A 5 mm 30 degree laparoscope was placed into the abdominal cavity, and the abdomen was surveyed. The patient was placed in Trendelenburg and slightly to the left. One 5 mm tro car was placed in the right upper quadrant, and one 12 mm trocar was placed in the left lower quadrant under direct visualization. The right colon was identified and traced down to the cecum. The appendix was identified and elevated anteriorly and medially. A window was created at the base of the appendix with a [place] dissector. The Endo JESÚS stapler was used to transect the appendix at its base through noninflamed tissue, and subsequently the mesoappendix. The appendix was placed in an Endo Catch bag, and removed via the left lower quadrant port site. Attention was turned to hemostasis, which was excellent. The abdomen was copiously irrigated and suctioned free, and again hemostasis was found to be excellent. All trochars removed under direct visualization. The abdomen was desufflated. The fascia in the 12 mm port site was closed with a 0 Vicryl suture. The skin was closed with a running 4-0 Monocryl subcuticular stitch. Dermabond was applied. The patient tolerated the procedure without complication, and was transferred in stable condition to the PACU. All instrument, needle, and sponge counts were correct at the end of the case. My assistant professor of mathematics was necessary throughout the procedure for tissue retraction, possible camera operation, and closure of the wounds. I understand that section 1842(b)(7)(D) of the Social Security act generally prohibits Medicare physician fee schedule payment for the services of assistants at surgery in teaching hospitals when qualified residents are available to furnish such services. I certify that the services for which payment is claimed were medically necessary and that no qualified resident was available to perform the services. I further understand that these services are subject to postpayment review by the Medicare carrier. I attest to the content of the Intraoperative Record and any orders documented therein. Any exceptions are noted below.
[2024-04-16] MEDS: fentaNYL citrate PF 100 MCG/2 ML VIAL IV PRN (17:10)
[2024-04-16] MEDS: ONDANSETRON INJ 2 MG/ML 2 ML VIAL IV PRN (17:15)
--- NOTE | 2024-04-16 17:45 | Anesthesiology Progress Note ---
Date of Service April 16, 2024 Anesthesia Post Procedure Vital Signs Vital Signs: Temp Pulse Pulse Resp BP BP BP 04/16/24 17:40 79 21 117/77 04/16/24 17:30 85 13 113/81 04/16/24 17:20 88 14 121/79 04/16/24 17:10 90 14 125/79 04/16/24 17:04 36.8 C 97 H 12 106/67 04/16/24 15:32 37.1 C 106 H 18 110/84 04/16/24 15:08 115 H 16 127/100 04/16/24 14:58 115 H 16 127/100 04/16/24 14:10 110 H 04/16/24 13:36 113 H 15 116/65 04/16/24 12:00 99 H 14 04/16/24 11:30 104 H 20 103/73 04/16/24 09:30 04/16/24 09:30 113 H 18 137/82 04/16/24 09:19 107 H 04/16/24 08:57 37.3 C 124 H 20 110/80 Pulse Ox O2 Del Method O2 Flow Rate 04/16/24 17:40 95 Room Air 04/16/24 17:30 96 Room Air 04/16/24 17:20 100 Room Air 04/16/24 17:10 100 Oxymask 9 04/16/24 17:04 100 Oxymask 9 04/16/24 15:32 100 Room Air 04/16/24 15:08 97 Room Air 04/16/24 14:58 97 Room Air 04/16/24 14:10 04/16/24 13:36 98 04/16/24 12:00 99 04/16/24 11:30 100 04/16/24 09:30 95 Room Air 04/16/24 09:30 95 Room Air 04/16/24 09:19 04/16/24 08:57 97 Room Air Pain Intensity Abdomen: Pain Intensity: 4 Transfer of Care Handoff Completed per policy Notes Mental Status: alert / awake / arousable Patient Amnestic to Procedure: Yes Nausea / Vomiting: adequately controlled Pain: adequately controlled Airway Patency, RR, SpO2: stable & adequate BP & HR: stable & adequate Hydration State: stable & adequate Anesthetic Complications: no major complications apparent
[2024-04-16] MEDS ORDERED: HYDROmorphone INJ 1 MG/ML SYRINGE IV PRN (18:25)
[2024-04-16] MEDS ORDERED: guaiFENesin/DEXTROM SYRUP 100MG/10MG 5ML UDC PO PRN (19:40)
[2024-04-16] MEDS ORDERED: MoRPHine SULFATE 2 MG/ML CARP IV PRN (19:40)
[2024-04-16] MEDS ORDERED: KETOROLAC 30 MG/ML VIAL IV PRN (19:40)
[2024-04-16] MEDS ORDERED: PROMETHAZINE 12.5 MG/50.5 ML BAG IV PRN (19:40)
[2024-04-16] MEDS ORDERED: ONDANSETRON INJ 2 MG/ML 2 ML VIAL IV PRN (19:40)
[2024-04-16] MEDS ORDERED: BENZONATATE 100 MG CAPSULE PO PRN (19:40)
[2024-04-16] MEDS ORDERED: diphenhydrAMINE Capsule 25 MG CAP PO PRN (19:40)
[2024-04-16] MEDS: oxyCODONE/ACETAMINOPHEN 5mg/325mg TAB PO PRN (21:10)
[2024-04-16] MEDS: HYDROmorphone INJ 1 MG/ML SYRINGE ONE (22:07)
[2024-04-17 07:45] VITALS: TEMP 98.2
--- NOTE | 2024-04-17 10:19 | Discharge Summary ---
Date of Service April 17, 2024 Admission HPI Per Admitting Provider Ailyn is a 23 yo female with history of IBS, constipation, dysmenorrhea who presented to ED with complaint of increasing illness . States she started having upper respiratory symptoms on the with fever, nasal congestion and cough with loss of taste and smell but symptoms seem to improve last Monday- Monday. She then started having fevers, nasal congestion and abdominal pain mostly in the left lower and upper abdomen starting on Monday. She states pain is dull aching but sharp in nature at times. Had constipation but then diarrhea after laxative. No blood in stools, no difficulty urinating or blood in urine. No blood thinning agents. Currently rating pain 4/10. Pain radiation from left side to right side. Principal Diagnosis Acute appendicitis Discharge Exam Constitutional WD/WN, vitals as above cooperative and comfortable; no acute distress and not ill appearing Respiratory normal respiratory effort, lungs clear to auscultation Cardiovascular RRR, no murmur, no edema Gastrointestinal (Abdomen) Inspection/Auscultation: abdomen normal to inspection and + abdominal surgical incision (c/d/i with dermabond, mild ecchymosis of LLQ incision); abdomen not distended Percussion/Palpation: + abdomen tender (at incision sites and RLQ, appropriate postop) and abdomen soft; no guarding and abdomen not rigid Skin no rashes, warm and dry Psychiatric Orientation: alert and oriented x 3 Discharge Data Allergies Allergy/AdvReac Type Severity Reaction Status Date / Time benzoyl peroxide Allergy Unknown Verified 04/24/23 11:36 Seasonal allergies Allergy Mild Uncoded 04/24/23 11:36 Consultations 04/16/24 15:01 ED Decision to Admit Stat Procedures Performed Operation Date: 04/16/24 12:40 Actual Procedures p Laparoscopic Appendectomy(Not Applicable) - Harrison Claros MD Ordered Studies 04/16/24 09:19 CT abd pelvis oral and IV con Stat Hospital Course (1) Acute appendicitis: (2) COVID-19: (3) Influenza A: Patient taken to operating room from emergency department for laparoscopic appendectomy on 04/16/2024. Patient found to have early acute appendicitis and tolerated procedure without difficulty. Patient was transferred to medical floor postoperatively and diet advanced as tolerated, pain management as needed, activity as tolerated, oral cough suppressant as needed for cough and abdominal binder for compression and incentive spirometry. POD # 1 avss, pain controlled with Percocet, ambulating to bathroom, urinating without difficulty, no fevers, chills, n,v. Patient discharged home on POD # 1 in stable condition. Total Time Total Time Spent Total Time Spent (In Minutes): 30 Total Time Includes: Examination of the Patient, Discharge Planning and Medication Reconciliation Discharge Plan Discharge Items Patient Disposition: Home - Self-Care Reason For Visit: LAPAROSCOPIC APPENDECTOMY Discharge Diagnosis: COVID-19 Infection Influenza A Acute appendicitis Condition on Discharge: Good Activity: Per Instructions section Non-emergency contact: Primary Care Provider and Surgeon Call non-emergency contact if: you have any medication questions, your pain is not controlled, you have a fever, your temperature is above 101, your wound has increased redness, your wound has increased drainage and your wound pain has increased Follow-up/Referrals: Aparna Valdivia PA-C [Physician Jinrikisha Driver] - Clint Winston DO [Physician] - Diet: Regular Addtl Attending Provider Instructions: Post-Surgical ~Discharge Instructions Activity Recommendations: - lifting limitation: (20 pounds for 2-3 weeks), - exercise/sex/sports limit: (nonstrenuous for 2 weeks), - driving or machine use limit: (none for at least 3 days and up to 1 week,, no driving while still having pain or taking narcotic pain medication), - Shower/bathe limit: (may shower, no submerging incisions underwater for 2 weeks (no bathing, swimming, hot tubs)) Diet: - Resume previous diet SPECIAL CARE INSTRUCTIONS: - May shower.. Let water run over area and pat dry. - Leave surgical glue on incisions, this will fall off on its own. - Call the surgeon's office with any questions or concerns - - (ex. temperature higher than 101 degrees F, excessive bleeding or pain). MEDICATIONS: - Resume previous medications unless instructed otherwise by your surgeon. - May alternate extra strength Tylenol and Ibuprofen as needed for mild to moderate pain -650 mg Tylenol every 6 hours as needed - Ibuprofen 600 mg every 6 hours as needed (take with food) - Percocet 1 every 6 hours, as needed for moderate to severe pain - Recommend daily stool softener (Colace) while taking narcotic pain medication to prevent constipation or straining. Drink plenty of water daily. FOLLOW UP VISIT: - If not already scheduled, please call the office to schedule a two week follow-up appointment. Office number Pending Studies at Discharge: Yes (appendix pathology, will be reviewed at postop visit) Stand-Alone Forms: My [facility], Smoking Cessation Medications and DC Order Prescriptions: New oxycodone-acetaminophen 5-325 mg tablet 1 tab PO Q6H PRN (Reason: pain) Qty: 10 0RF Continued levocetirizine [Xyzal] 5 mg tablet 5 mg PO DAILY Rx Instructions: Unable to verify OTC meds w/ pt at this date/time. ascorbic acid (vitamin C) 500 mg tablet 500 mg PO DAILY Rx Instructions: Unable to verify OTC meds w/ pt at this date/time. benzonatate 100 mg capsule 100 mg PO TID PRN (Reason: Cough) Discharge Orders: Discharge Order (Routine); Ordered 04/17/24 Ordered By: Aparna Valdivia Admission Data Admit Date/Time: 04/16/24 16:57 Attending Provider: Harrison Claros Admit Provider: Harrison Claros Primary Care Provider: PCP,NO Other Providers: Harrison Claros
[2024-04-17] MEDS: DOCUSATE SODIUM 100 MG CAP PO ONE (11:31)
[2024-04-17 11:39] VITALS: PULSE 62; RESP 16; O2SAT 100
[2024-04-17 12:21] VITALS: BP 110/84
== END 2024-04-17 13:46 | disposition home or self-care (01) ==
LOC: ED 08:50 → 2W 15:08 → OR 15:08